=== PATIENT | male | born 1985 | race American Indian/Alaskan Native ===

== ENCOUNTER 2017-07-27 08:37 | Emergency (ER) | payer OTHER ==
[2017-07-27 09:16] VITALS: O2SAT 100
[2017-07-27] MEDS ORDERED: Sodium Chloride 0.9% 1,000 ML IV STA (09:25)
[2017-07-27 09:26] VITALS: PULSE 79; TEMP 98.2
--- NOTE | 2017-07-27 09:43 | ED PDOC ---
Arrival/HPI - General Chief Complaint: Flu-like Symptoms Time Seen by Provider: 07/27/17 08:53 Historian: Patient - History of Present Illness Narrative History of Present Illness (Text): 07/27/17 09:26 31-year-old male presents today with body aches and subjective fevers and chills since yesterday. Patient states he has a sore throat. States he feels like he had high fever at home. No medications have been taken for pain. He denies cough. He denies nasal congestion. He is complaining of lower abdominal pain. Dysuria. He denies penile discharge. Denies back pain. Patient admits to unprotected sex 2 days ago. Patient states he is concerned because symptoms started after unprotected sex. He denies testicular pain. He denies dizziness or weakness. Denies sick contacts. Patient denies nausea or vomiting or diarrhea. Past Medical History - Provider Review Nursing Documentation Reviewed: Yes - Travel History Have you recently traveled outside [place] w/in the past 3 mons?: No - Infectious Disease Hx of Infectious Diseases: None - Psychiatric Hx Substance Use: No - Anesthesia Hx Anesthesia: No Family/Social History - Physician Review Nursing Documentation Reviewed: Yes Family/Social History: Unknown Family HX Smoking Status: Current Some Days Smoker Hx Alcohol Use: Yes Frequency of alcohol use: Socially Hx Substance Use: No Allergies/Home Meds Allergies/Adverse Reactions: Allergies SEASONAL Allergy (Uncoded 07/27/17 09:16) CONGESTION Home Medications: Home Meds Medication Instructions Recorded Confirmed No Known Home Med 07/27/17 07/27/17 Review of Systems - Review of Systems Constitutional: Fevers. absent: Fatigue ENT: Sore Throat. absent: Sinus Congestion Respiratory: absent: SOB, Cough Cardiovascular: absent: Chest Pain, Palpitations Gastrointestinal: Abdominal Pain. absent: Constipation, Diarrhea, Nausea, Vomiting Genitourinary Male: Dysuria. absent: Frequency, Hematuria Musculoskeletal: absent: Arthralgias, Back Pain, Neck Pain Skin: absent: Rash, Pruritis Neurological: Headache. absent: Dizziness Psychiatric: absent: Anxiety, Depression, Suicidal Ideation Physical Exam Vital Signs Reviewed: Yes Vital Signs Temp Pulse Resp BP Pulse Ox 07/27/17 12:26 79 14 138/60 100 07/27/17 09:25 98.2 F 79 17 120/73 100 07/27/17 09:11 98.4 F 85 18 120/73 100 Temperature: Afebrile Blood Pressure: Normal Pulse: Regular Respiratory Rate: Normal Appearance: Positive for: Well-Appearing, Non-Toxic, Comfortable Pain Distress: None Mental Status: Positive for: Alert and Oriented X 3 - Systems Exam Head: Present: Atraumatic Pupils: Present: PERRL Extroacular Muscles: Present: EOMI Conjunctiva: Present: Normal Ears: Present: Normal Canal. No: Erythema, TM Bulging, TM Perf Mouth: Present: Moist Mucous Membranes, Normal Tounge. No: Drooling, Trismus Pharnyx: Present: Normal. No: ERYTHEMA, EXUDATE, TONSILS ENLARGED, Peritonsilar Swelling, Uvular Deviation, Muffled/Hoarse Voice Nose (External): Present: Atraumatic Nose (Internal): Present: Normal Inspection Neck: Present: Normal Range of Motion, Trachea Midline. No: Meningeal Signs, Lymphadenopathy Respiratory/Chest: Present: Clear to Auscultation, Good Air Exchange. No: Respiratory Distress, Accessory Muscle Use Cardiovascular: Present: Regular Rate and Rhythm, Normal S1, S2. No: Murmurs Abdomen: Present: Normal Bowel Sounds. No: Tenderness, Distention, Peritoneal Signs, Rebound, Guarding Back: Present: Normal Inspection. No: Midline Tenderness, Paraspinal Tenderness Upper Extremity: Present: Normal ROM Lower Extremity: Present: Normal ROM Neurological: Present: GCS=15, Speech Normal Skin: Present: Warm, Dry, Normal Color. No: Rashes Psychiatric: Present: Alert, Oriented x 3 Medical Decision Making ED Course and Treatment: 07/27/17 09:59 31yr old male with dysuria, abdominal pain and subjective fevers and bodyaches. pt also with unprotected sex. no penile discharge. cbc wnl cmp wnl lipase wnl rapid flu; negative UA: wnl gc/chlamdyia; pending cxr; wnl 07/27/17 11:51 pt reassessment; pt with continued lower abdominal tenderness, greatest in the suprapubic region; will do ct abd/pelvis with IV contrast. ct abd/pelvis: FINDINGS: LOWER THORAX: Unremarkable. LIVER: Unremarkable. No gross lesion or ductal dilatation. GALLBLADDER AND BILE DUCTS: Unremarkable. PANCREAS: Unremarkable. No gross lesion or ductal dilatation. SPLEEN: Unremarkable. ADRENALS: Unremarkable. No mass. KIDNEYS AND URETERS: Unremarkable. No hydronephrosis. No solid mass. VASCULATURE: Unremarkable. No aortic aneurysm. BOWEL: Unremarkable. No obstruction. No gross mural thickening. APPENDIX: Normal appendix. PERITONEUM: Unremarkable. No free fluid. No free air. LYMPH NODES: Unremarkable. No enlarged lymph nodes. BLADDER: Unremarkable. REPRODUCTIVE: Unremarkable. BONES: No acute fracture. OTHER FINDINGS: None. IMPRESSION: No acute intra-abdominal findings 07/27/17 13:18 pt reassessment; pt feeling better; vitals stable. Afebrile. pt wants to be treated for gc/chlamydia; rocephin and zithromax ordered. discussed all results in depth with patient; advised f/u with PMD. advised refraining from sex. advised immediate return if symptoms worsen, persist or if new symptoms develop. Patient verbalizes understanding of discharge instructions and need for immediate followup. all aspects of this case were discussed the attending of record. impression; possible std exposure. motrin every 6 hours as needed for pain/fever reduction Follow up with the primary care physician within the next 2 days follow up with the Urologist within the next 2 days return immediately if symptoms worsen,persist or if new symptoms develop. - Lab Interpretations Lab Results: 07/27/17 10:16 07/27/17 10:16 Lab Results 07/27/17 10:16: WBC 7.1, RBC 4.53, Hgb 13.6 L, Hct 40.5 L, MCV 89.4, MCH 30.0, MCHC 33.6, RDW 15.2 H, Plt Count 293, MPV 9.2, Gran % 62.1, Lymph % (Auto) 30.6 , [place] % (Auto) 6.7 H, Eos % (Auto) 0.3 L, Baso % (Auto) 0.3, Gran # 4.39, Lymph # (Auto) 2.2, [place] # (Auto) 0.5, Eos # (Auto) 0.0, Baso # (Auto) 0.02 07/27/17 10:16: Sodium 141, Potassium 4.4, Chloride 104, Carbon Dioxide 23, Anion Gap 18, BUN 15, Creatinine 1.0, Est GFR ( Amer) > 60, Est GFR (Non- Af Amer) > 60, Random Glucose 87, Calcium 9.8, Total Bilirubin 0.4, AST 50, ALT 47, Alkaline Phosphatase 38, Total Protein 8.5 H, Albumin 4.7, Globulin 3.8, Albumin/Globulin Ratio 1.2, Lipase 116 07/27/17 10:16: Influenza Typ A,B (EIA) Negative for flu a/b 07/27/17 09:43: Urine Color Yellow, Urine Appearance Clear, Urine pH 6.0, Ur Specific [place] >= 1.030, Urine Protein Negative, Urine Glucose (UA) Negative, Urine Ketones Negative, Urine Blood Negative, Urine Nitrate Negative, Urine Bilirubin Negative, Urine Urobilinogen 0.2, Ur Leukocyte Esterase Negative - RAD Interpretation Radiology Orders: 07/27/17 09:25 CHEST TWO VIEWS (PA/LAT) [RAD] Stat 07/27/17 11:51 ABD & PELVIS IV CONTRAST ONLY [CT] Stat - Medication Orders Current Medication Orders: Discontinued Medications Azithromycin (Zithromax) 1,000 mg PO STAT STA PRN Reason: Protocol Stop: 07/27/17 12:55 Ceftriaxone Sodium (Rocephin) 250 mg IM STAT STA PRN Reason: Protocol Stop: 07/27/17 12:55 Sodium Chloride (Sodium Chloride 0.9%) 1,000 mls @ 999 mls/hr IV .Q1H1M STA Stop: 07/27/17 10:25 Last Admin: 07/27/17 10:16 Dose: 999 mls/hr eMAR Start Stop Document 07/27/17 10:16 RG (Rec: 07/27/17 10:24 [email or web address]) Intravenous Solution Start Date 07/27/17 Start Time 10:15 Ketorolac Tromethamine (Toradol) 30 mg IVP STAT STA Stop: 07/27/17 09:26 Last Admin: 07/27/17 10:15 Dose: 30 mg MAR Pain Assessment Document 07/27/17 10:15 RG (Rec: 07/27/17 10:23 [email or web address] Pain Reassessment Is this a pain reassessment? Yes Sleep Is patient sleeping during reassessment? No Presence of Pain Presence of Pain Yes Pain Scale Used Pain Scale Used Numeric Location Upper or Lower Lower Pain Location Body Site Abdomen Description Description Constant Intensity of Pain at present 7 Pain Behavior Grasping Site IVP Administration Document 07/27/17 10:15 RG (Rec: 07/27/17 10:23 [email or web address]) Charges for Administration # of IVP Administrations 1 Re-Assess: PABLO Pain Assessment Document 07/27/17 11:15 YOLA (Rec: 07/27/17 12:45 [email or web address] Pain Reassessment Is this a pain reassessment? Yes Presence of Pain Presence of Pain No Disposition/Present on Arrival - Present on Arrival Any Indicators Present on Arrival: No History of DVT/PE: No History of Uncontrolled Diabetes: No Urinary Catheter: No History of Decub. Ulcer: No History Surgical Site Infection Following: None - Disposition Have Diagnosis and Disposition been Completed?: Yes Diagnosis: Abdominal pain, Possible exposure to STD Disposition: HOME/ ROUTINE Disposition Time: 13:24 Patient Plan: Discharge Condition: GOOD Discharge Instructions (ExitCare): Safe Sex (ED), Acute Abdominal Pain (ED) Additional Instructions: motrin every 6 hours as needed for pain/fever reduction Follow up with the primary care physician within the next 2 days follow up with the Urologist within the next 2 days return immediately if symptoms worsen,persist or if new symptoms develop. Referrals: Walker Egan MD [Primary Care Provider] - Follow up with primary Albino Bower MD [Staff Provider] - Follow up with primary Forms: [facility] (Kyrgyz), WORK NOTE
[2017-07-27 10:06] LABS: URINE BILIRUBIN NEGATIVE (NEGATIVE); URINE BLOOD NEGATIVE (NEGATIVE); URINE GLUCOSE (UA) NEGATIVE (NEGATIVE); URINE LEUKOCYTE ESTERASE NEGATIVE Leu/uL (NEGATIVE); URINE NITRATE NEGATIVE (NEGATIVE); URINE PROTEIN NEGATIVE mg/dL (<30 mg/dL); URINE UROBILINOGEN 0.2 E.U./dL (<1 E.U./dL)
[2017-07-27 10:07] LABS: URINE APPEARANCE CLEAR (CLEAR); URINE COLOR YELLOW (YELLOW)
[2017-07-27 10:36] LABS: BASO # 0.02 K/mm3 (0.0-2.0); BASO % 0.3 % (0.0-3.0); EOS % 0.3 % (1.5-5.0); GRAN # 4.39 (1.4-6.5); GRAN % 62.1 % (50.0-68.0); HEMOGLOBIN 13.6 g/dL (14.0-18.0); LYMPH # 2.2 (1.2-3.4); LYMPH % 30.6 % (22.0-35.0); MEAN CELL VOLUME 89.4 fl (80.0-105.0); MEAN CORPUSCULAR HGB CONC 33.6 g/dl (31.0-37.0); MEAN PLATELET VOLUME 9.2 fl (7.0-11.0); MONO # 0.5 (0.1-0.6); MONO % 6.7 % (1.0-6.0); RBC 4.53 10^6/uL (3.5-6.1); RED CELL DISTRIBUTION WIDTH 15.2 % (11.5-14.5); WHITE BLOOD COUNT 7.1 10^3/ul (4.5-11.0)
[2017-07-27 11:15] LABS: ALB/GLOB RATIO 1.2 (1.1-1.8); ALBUMIN 4.7 g/dL (3.0-4.8); ALT/SGPT 47 U/L (7-56); AST/SGOT 50 U/L (17-59); BLOOD UREA NITROGEN 15 mg/dL (7-21); CALCIUM 9.8 mg/dL (8.4-10.5); GFR AFRICAN-AMERICAN > 60; GFR NON-AFRICAN AMERICAN > 60; LIPASE 116 U/L (23-300)
[2017-07-27] MEDS ORDERED: Iohexol 350 MG/100 ML VIAL ONE (12:21)
[2017-07-27 12:27] VITALS: BP 138/60; RESP 14
[2017-07-27] MEDS ORDERED: cefTRIAXone (Rocephin) 250 mg Inj IM STA (12:54)
--- NOTE | 2017-07-27 13:03 | CT ---
PROCEDURE: CT Abdomen and Pelvis with contrast HISTORY: lower abd pain COMPARISON: None. TECHNIQUE: Contrast dose: 100 cc of Omni 350 Radiation dose: Total exam DLP = 364 mGy-cm. This CT exam was performed using one or more of the following dose reduction techniques: Automated exposure control, adjustment of the mA and/or kV according to patient size, and/or use of iterative reconstruction technique. FINDINGS: LOWER THORAX: Unremarkable. LIVER: Unremarkable. No gross lesion or ductal dilatation. GALLBLADDER AND BILE DUCTS: Unremarkable. PANCREAS: Unremarkable. No gross lesion or ductal dilatation. SPLEEN: Unremarkable. ADRENALS: Unremarkable. No mass. KIDNEYS AND URETERS: Unremarkable. No hydronephrosis. No solid mass. VASCULATURE: Unremarkable. No aortic aneurysm. BOWEL: Unremarkable. No obstruction. No gross mural thickening. APPENDIX: Normal appendix. PERITONEUM: Unremarkable. No free fluid. No free air. LYMPH NODES: Unremarkable. No enlarged lymph nodes. BLADDER: Unremarkable. REPRODUCTIVE: Unremarkable. BONES: No acute fracture. OTHER FINDINGS: None. IMPRESSION: No acute intra-abdominal findings
--- NOTE | 2017-07-27 13:21 | RAD ---
HISTORY: fever/chills COMPARISON: No prior. TECHNIQUE: Chest PA and lateral FINDINGS: LUNGS: No pulmonary infiltrate. There is a curvilinear opacity at the left base likely representing a skin fold from pectoralis muscle hypertrophy. PLEURA: No significant pleural effusion identified. No pneumothorax apparent. CARDIOVASCULAR: Normal. OSSEOUS STRUCTURES: No significant abnormalities. VISUALIZED UPPER ABDOMEN: Normal. OTHER FINDINGS: None. IMPRESSION: No active disease.
== END 2017-07-27 13:38 | disposition home or self-care (01) ==
LOC: ED 08:37
DX: R10.9 Unspecified abdominal pain (principal)
CPT/HCPCS: 71046; 74177; 80053; 81003; 83690; 85025; 87491; 87591; 87804; 96372; 96374; 99284; J0696; J1885; J7040; Q9967